=== PATIENT | male | born 1945 | race Caucasian/White ===

== ENCOUNTER 2025-06-13 13:42 | Inpatient (IN) | payer MEDICARE, SELFPAY ==
[2025-06-12] VITALS (9 sets, daily range): BP systolic 108–160; BP diastolic 77–86; BMI 27.3; BMI 27.8
--- NOTE | 2025-06-12 11:05 | ED.GENMED ---
History of Present Illness
General
Chief Complaint: Change in Mental Status
Source: ambulance crew and long term records
Exam Limitations: dementia
Time Seen by Provider: 06/12/25 11:03
History of Present Illness
History of Present Illness:
79 yo male w h/o GERD, Roberts's esophagus, Dementia, [place] for [place] yesterday, forehead contusion, more confused than usual. Not anticoagulated. Pt with expressive aphasia, can only state his name. He does follow all commands.
Past History
Past History
ED Past Medical History: GERD, Other (Roberts's esophagus) and Other (Expressive aphasia, dementia, alcohol abuse, CHF)
Social History
Tobacco: Non-smoker
Alcohol: Former
Personal:
Living: long term
Review of Systems
Review of Systems
Allergies reviewed?: Yes
All Other Systems: ROS reviewed and negative except as documented in HPI and ROS
: Reports incontinence
Musculoskeletal: Reports no symptoms
Phy Exam
Physical Exam
Physical Exam:
GENERAL: No acute distress. A&O x 1.
CONSTITUTIONAL: Afebrile.
EYES: clear, conjunctivae normal
ENMT: moist mucus membranes, Pharynx nl
RESPIRATORY: Regular respirations, nonlabored, lungs clear.
CARDIOVASCULAR: Regular rate and rhythm, no murmurs, no rubs.
GI: Soft, nontender, normal BS
MUSCULOSKELETAL: Moves with ease. Moves all extremities well. Well perfused.
SKIN: Warm, dry, pink
PSYCH: Calm mood and affect. Well kept, interactive.
NEUROLOGIC: Awake, alert and oriented x 1, expressive aphasia. Follows commands. No focal neurological deficits
Course
Orders/Labs/Results
Orders:
Orders
06/12/25 11:04
CT Head W/o Iv Contrast Urgent
Comment:
Reason For Exam: fall, L forehead contusion,more confused
06/12/25 11:12
Complete Blood Count/With Diff Urgent
Comprehensive Metabolic Panel Urgent
Magnesium Urgent
Comment: ADD ON
Phosphorus Urgent
Comment: ADD ON
TSH Reflex To Free T4 Urgent
Comment: ADD ON
Urinalysis Reflex To Culture Urgent
Date Specimen was Collected: 06/12/25
Time Specimen was Collected: 11:11
Urine Microscopic Reflex Cult Urgent
06/12/25 11:25
EKG [Electrocardiogram (*1)] Urgent
Reason for Study: Atrial Fibrillation
06/12/25 11:26
EKG- Treatment ONCE
06/12/25 12:38
CR Chest - 2 Views Urgent
Comment:
Reason For Exam: change in MS
06/12/25 12:52
NT-proBNP Urgent
Comment: ADD ON
Troponin I Urgent
06/12/25 14:29
Add On- LAB Urgent
Tests Added?: mag, phos
06/12/25 14:35
Admit/Transfer Patient As Directed
Co-Sign Provider:
Level of Care: Observation services
Assign to:: Telemetry
Physician / Group: Esperanza Rodriguez
Diagnosis: second degree heart block
Reason for Telemetry: Arrhythmia
Date to Stop Telemetry: 06/15/25
Time to Stop Telemetry: 11:00
PRN Pain Medication Management As Directed
May give lesser potent ordered pain med per pt: Yes
preference::
Protocol:: Medication orders for pain may be administered in a
manner that supports deferring to patient preference
when the pt is:
- Requesting an ordered lesser potent pain medication.
Least to most potent pain medications are defined
as: acetaminophen < NSAID < tramadol < opioids
(morphine, oxycodone, hydromorphone).
- Requesting a lesser dose of the same medication IF
ORDERED.
- Requesting a less intrusive route of administration
if both routes are prescribed by the provider (PO <
IV).
06/12/25 14:36
Code Status As Directed
Resuscitation Status: Do not resuscitate
Based on pt advanced directive or healthcare POA form: Yes
Physician note:: [facility] facesheet indicates DNR/DNI
DNR Bracelet Application ONCE
06/12/25 Dinner
Regular
At Your Request: Full Participation
Does patient need a safe tray?: No
06/12/25 15:36
Activity As Directed
Activity Level: As Tolerated
INT (Intravenous Needle Therapy) As Directed
Comment: maintain peripheral IV access
Intake/ Output As Directed
Frequency: Per unit guidelines
Vital Signs As Directed
Frequency: q4h
Weight As Directed
Frequency: Once
Comment: on admission
Pulse Ox/spot Check [RESP] Routine
Quantity: 1
Special Instructions: on admission and then every shift if on oxygen
DX Deep Vein Thrombosis Video Routine
06/12/25 18:00
Enoxaparin Sodium [Lovenox] 40 mg SC QPM
06/13/25 06:00
Basic Metabolic Panel IN AM
06/15/25 11:00
DC Protocol for Telemetry ONCE
Abnormal Lab Results
06/12/25
11:12
Absolute Lymphs (auto) 0.9 L 10^3/uL
(1.2-3.4)
Neutrophils % 78.4 H %
(42.2-75.2)
Lymphocytes % 14.8 L %
(20.5-51.1)
Chloride 108 H mmol/L
(98-107)
Glucose 119 H mg/dl
(70-99)
Magnesium 1.3 L mg/dl
(1.6-2.3)
Total Bilirubin 1.7 H mg/dl
(0.2-1.3)
Ur Occult Blood Reflex 1+ A
(Negative)
Urine Urobilinogen 2+ A
(Neg - 1+)
Urine Bacteria (Reflex) Few A
(Negative)
Urine Albumin (Reflex) 2+ A
(Neg - Trace)
06/12/25 11:12
06/12/25 11:12
Vital Signs
Initial and Last Documented VS:
Initial Vital Signs
Temp Pulse Resp Pulse Ox
97.5 F 66 18 94
06/12/25 10:56 06/12/25 10:56 06/12/25 10:56 06/12/25 10:56
Last Documented Vital Signs
Temp Pulse Resp BP Pulse Ox
97.4 F 113 20 125/86 95
06/12/25 15:57 06/12/25 15:57 06/12/25 15:57 06/12/25 15:57 06/12/25 15:57
Freezer Assistant consulted with Physician
Freezer Assistant consulted with physician?: Yes
Name of Physician Consulted: Donnie
MDM/Problems Addressed
Differential Diagnosis Includes:
UTI, dehydration, electrolyte imbalance, contusion forehead, brain bleed
MDM/Problems Addressed:
79 yo male w h/o GERD, Roberts's esophagus, Dementia, [place] here for [place] yesterday, forehead contusion, more confused than usual. Not anticoagulated. Pt with expressive aphasia, can only state his name. He does follow all commands.
Afebrile, NAD, Abdomen benign, VSS
12:30 PM:
Bedside monitor appears to be bradycardic with afib w 2nd degree heart block. This appears new.
CBC normal
CMP with no clinically significant abnormality
Straight cath UA: No clinically significant abnormality
EKG: A fib with slow ventricular response, secondary heart block Mobitz [address] Orozco
1:45 p.m.
CXR: NAD
BNP 1850
Troponin: WNL
Head CT: shows nothing acute
Plan: Admit to Hospitalist, Cardiology consult: New onset Afib with 2nd degree heart block.
*Pulse Oximetry
SaO2: 94
Oxygen Mode of Delivery: Room air
Patient hypoxic: no
*EKG
EKG Intrepretation Date: 06/12/25
Interpretation: abnormal
Heart Rate: 56
Rate: bradycardiac
Rhythm: a-fib
[place]: left axis deviation
QRS Pattern: normal QRS
Ischemia: no ischemia
*Critical Care Note
Total Time (30-74mins, 75-104mins- exclusive of procedures): Not Applicable
ED Attending Note
-
Portions of this chart may have been created with voice recognition software.� Occasional wrong word or��sound alike� substitutions may have occurred due to the inherent limitations of voice recognition software.
Discharge Plan
Departure
Patient Disposition: Admit
Date of Disposition: 06/12/25
Time of Disposition: 13:57
Admit to: Telemetry
Presentation/result/management discussed w/ accepting MD/DO: Hospitalist
Condition: Fair
Discharge Problem:
New onset a-fib, Second degree heart block
Interventions
Interventions:
*Risk Screen - Suicide Last Done: 06/12/25 11:08
*General Assessment Last Done: 06/12/25 11:08
*Neglect/Abuse Screening Last Done: 06/12/25 11:08
*ED- Fall Risk Assessment Last Done: 06/12/25 15:39
*ED COVID-19 Vaccine History Last Done: 06/12/25 11:12
*Nursing Disposition Last Done: 06/12/25 15:39
ED- Pulmonary Assessment Last Done: 06/12/25 11:17
ED-Psychological Assessment Last Done: 06/12/25 15:39
ED- Neurological Assessment Last Done: 06/12/25 11:17
ED- Cardiac Assessment Last Done: 06/12/25 11:17
ED Swallowing Screen Last Done: 06/12/25 11:13
Discharge Date and Time
Discharge Date/Time: 06/12/25 15:41
[2025-06-12 11:33] LABS: Hematocrit 44.7 % (39.0-52.0); Hemoglobin 15.1 g/dL (13.0-18.0); Mean Corp Hgb Conc. 33.8 g/dL (33.0-37.0); Mean Corpuscular Volume 87.5 fL (80.0-94.0); Nucleated Red Blood Cells % 0 % (-); Platelet Count 199 10^3/uL (130-400); Red Cell Dist. Width 12.9 % (11.5-14.5)
[2025-06-12 11:39] LABS: Urine Character Clear (Clear)
[2025-06-12 11:45] LABS: Urine Red Blood Cell 0-2 /HPF (0-2); Urine Squamous Cell 0-2 /LPF (Few)
[2025-06-12 11:57] LABS: ALT (SGPT) 11 U/L (0-50); AST (SGOT) 19 U/L (17-59); Albumin 3.9 g/dl (3.5-5.0); Alkaline Phosphatase 61 U/L (38-126); Blood Urea Nitrogen 13 mg/dl (9-20); Calcium 9.4 mg/dl (8.4-10.2); Carbon Dioxide 27 mmol/L (22-30); Chloride 108 mmol/L (98-107); Estimated Creatinine Clearance 90 ml/min; Glucose 119 mg/dl (70-99); Potassium 4.1 mmol/L (3.5-5.1); Sodium 141 mmol/L (135-145); Total Protein 6.3 g/dl (6.3-8.2); eGFR > 60.00
[2025-06-12 13:29] LABS: Troponin I < 0.012 ng/ml
[2025-06-12 15:06] LABS: Magnesium 1.3 mg/dl (1.6-2.3)
--- NOTE | 2025-06-12 15:26 | HPS.HSE ---
Family Physician
-
Family Physician: Delano ePrez MD
Chief Complaint
-
Fall
History of Present Illness
79-year-old male who is a resident at [facility] with known history of dementia and expressive aphasia, brought to the hospital after noticed by the nursing staff with some bruises on his left side of the face, patient does not follows commands
cannot agitated specially after he saw his , noticed on the EKG to be on second-degree type I heart block on the monitor he looks like in fact., Does not follows commands answer question he just basically moaning and try to reach out to his
and some of the words she states is clear but not related to the conversations.
Medical History
Past Medical History
Past Medical History: Reports Other
Additional Past Medical History:
Past medical history:
GERD
Advanced dementia
He is a [place] war
Roberts esophagus
Social history: Resident of the 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
Past Surgical History: Reports Other
Social History
Unable to obtain full social history at this time due to: Other
Family History
Family History: Other
Allergies / Home Medications
Allergies reflects when Allergies were last updated in [employer].
Home Medications with original date entered in [employer]
Allergy/Medication List:
Home Medications
aripiprazole 10 mg tablet 10 mg PO 06/12/25
dextromethorphan-guaifenesin 10 mg-200 mg/5 mL oral liquid 10 ml PO Q6HPRN PRN cough 06/12/25
finasteride 5 mg tablet 5 mg PO 06/12/25
fluticasone propionate 50 mcg/actuation nasal spray,suspension 1 spray intranasal 06/12/25
gabapentin 300 mg capsule 300 mg PO 06/12/25
mirtazapine 7.5 mg tablet 7.5 mg PO HS 06/12/25
pantoprazole 40 mg tablet,delayed release (Protonix) 40 mg PO 06/12/25
pravastatin 40 mg tablet 40 mg PO 06/12/25
tamsulosin 0.4 mg capsule (Flomax) 0.4 mg PO 06/12/25
therapeutic multivitamin 1 tab PO DAILY 06/12/25
thiamine HCl (vitamin B1) 100 mg tablet 100 mg PO DAILY 06/12/25
Review of Systems
-
Unable to obtain full review of systems at this time due to: Dementia
Physical Exam
Vital Signs
Vital Signs
Temp Pulse Resp BP Pulse Ox
97.5 F 67 16 118/82 95
06/12/25 10:56 06/12/25 14:45 06/12/25 14:45 06/12/25 14:00 06/12/25 14:15
exam is limited as patient does not follows command and answer question properly
Physical exam:
General: Awake, alert disoriented, does not follow commands and have an expressive aphasia and not in distress
HEENT: No active discharge, ecchymosis or bruising, moist lips, tongue and mucous membrane.
Eyes: No discharge or red conjunctiva, no nystagmus, pupils are reactive and equal
Respiratory: Normal AP contour and diameter, normal chest wall movement, normal respiratory effort, no respiratory distress,
Lungs: Good air entry bilaterally, no wheezing or rhonchi, no rales or crackles
Heart: S1, S2 regular, normal rate, no added sound.
Gastrointestinal: Positive bowel sounds, soft, nontender, no guarding or rigidity or organomegaly
Musculoskeletal: , Moves extremities freely,
Skin: Warm and dry, normal color.
Neurological: Does not follows command, advanced cognitive decline appreciated, move extremities freely
Psychiatric: Abnormal judgment and insight, confused
Physical Exam
General: Other
Laboratory Results
-
06/12/25 11:12
06/12/25 11:12
Laboratory Results
Total Bilirubin 1.7 mg/dl (0.2-1.3) H 06/12/25 11:12
AST 19 U/L (17-59) 06/12/25 11:12
ALT 11 U/L (0-50) 06/12/25 11:12
Alkaline Phosphatase 61 U/L (38-126) 06/12/25 11:12
Troponin I < 0.012 ng/ml 06/12/25 12:52
chest x-ray: No acute cardiopulmonary abnormality
CT brain:No acute intracranial abnormality noted.
Moderate atrophy
Nonacute appearing nasal bone fractures. Clinical correlation recommended..
EKG reviewed by me showed irregular, concerning for the A-fib with second-degree type I AV block, QTc 489
Data Reviewed
-
Diagnostic Radiology: Image Personally Visualized and interpreted and Discussed with Family
Lab Data: Labs Reviewed by me and Discussed with Family
Old Records: Reviewed
Impression/Plan
-
IMPRESSION:
79-year-old male with history of advanced dementia and expressive aphasia sent to the hospital for evaluation of the fall although workup kindly concerning for new onset A-fib and or second-degree type I heart block
Mechanical fall:
Patient ambulatory but trying to get out of the bed according to the this was is trying to do at the shelter
Fall precaution
1:1 but the nursing on the floor said they could not handle agitation without a one-to-one if continued then we may need some sedative and may use a soft restraint.
Advanced dementia: Continue omeprazole.
Mirtazapine
Dyslipidemia on statin
PPI continue Protonix
All discussed with the in detail at the bedside and expressed understanding all the question answered
CODE STATUS according to the is DNR/DNI
DVT prophylax
--- NOTE | 2025-06-12 15:41 | PHANOTE ---
med rec note- [facility], [facility] it [facility] but paperwork missing directions for medication, awaiting new paperwork
--- NOTE | 2025-06-12 15:45 | PTCARENOTE ---
06/12- Patient presents to floor calm and cooperative. Transferred and oriented without issue. AAOX2, forgetful, aphagia with slurred slowed speech. Unable to answer most Admissions questions. Multiple superficial abrasions and scabs seen over
L-side of body S/P fall yesterday. Bed Alarm applied. Suicide Observation D/Juan, as patient has no hx or current expression of SI, is currently cooperative and complying with Fall Precautions. Teley #[id number].
--- NOTE | 2025-06-12 15:50 | PTCARENOTE ---
06/12- Patient remains confused but pleasent/cooperative. Upon drinking some water, he began coughing, was not inspiring, face turned red. Sat patient up to 90degrees, percussed back, and he began coughing and breathing again. POX=98%, CE=619. HR
settled back to 89 after a few minutes of breathing. POX=99%. Did not pass Swallow Screen. Patient now NPO awaiting speech consult.
--- NOTE | 2025-06-12 16:55 | PTOTSP ---
Speech Therapy Evaluation:
Pt presents with signs concerning for oropharyngeal dysphagia, likely chronic related to dementia (pt with hx of expressive aphasia, ? hx of CVA). At bedside, significant coughing event with thin liquids. PO trials d/c due to safety concerns. CXR
without pneumonia, WBC WNL, pt afebrile, and on room air. Recommend temporary NPO with ongoing reassessment to determine candidacy oral diet.
Recommend:
1. Strict NPO
2. Meds non-oral
3. Oral care 3x/daily
4. FUEL CONVERSION TECHNICIAN to closely follow
[2025-06-12] MEDS: LOVENOX 40 MG SC (17:15)
--- NOTE | 2025-06-12 18:22 | CON.CAR ---
Consultation
Consultation Request
Date/Time Consultation Requested: 06/12/25
Date/Time Consultation Performed: 06/12/25
Requesting Provider: Dr. Rodriguez
Performing Provider: Dr. Bertrand
Reason for Consultation: Abnormal EKG
Medical History
-
Chief Complaint: Bruises noted on left side of face at [facility]
Allergies / Home Medications
Allergy/AdvReac Type Severity Reaction Status Date / Time
No Allergy Information Allergy Unverified 06/12/25 15:37
Available
�Medication �Instructions �Recorded �Confirmed �Type
aripiprazole 10 mg tablet 10 mg PO 06/12/25 History
dextromethorphan-guaifenesin 10 10 ml PO Q6HPRN PRN cough 06/12/25 06/12/25 History
mg-200 mg/5 mL oral liquid
finasteride 5 mg tablet 5 mg PO 06/12/25 History
fluticasone propionate 50 1 spray intranasal 06/12/25 History
mcg/actuation nasal
spray,suspension
gabapentin 300 mg capsule 300 mg PO 06/12/25 History
mirtazapine 7.5 mg tablet 7.5 mg PO HS 06/12/25 06/12/25 History
pantoprazole 40 mg tablet,delayed 40 mg PO 06/12/25 History
release (Protonix)
pravastatin 40 mg tablet 40 mg PO 06/12/25 History
tamsulosin 0.4 mg capsule (Flomax) 0.4 mg PO 06/12/25 06/12/25 History
therapeutic multivitamin 1 tab PO DAILY 06/12/25 06/12/25 History
thiamine HCl (vitamin B1) 100 mg 100 mg PO DAILY 06/12/25 06/12/25 History
tablet
Physical Exam
Vital Signs
Temp Pulse Resp BP Pulse Ox
97.4 F 113 20 125/86 95
06/12/25 15:57 06/12/25 15:57 06/12/25 15:57 06/12/25 15:57 06/12/25 15:57
Lab Results
06/12/25 11:12
06/12/25 11:12
Troponin I < 0.012 ng/ml 06/12/25 12:52
Sma-I-Mvkyyzzpkim Pept 1850 pg/ml 06/12/25 12:52
[2025-06-12] MEDS: HALDOL 2 MG IV ×2 (18:38→19:24)
--- NOTE | 2025-06-12 18:50 | PTCARENOTE ---
06/12- Patient has become aggressive and agitated. He attempts to pull out IV and Telemetry off. He attempts to get out of bed. When attempting to calm and redirect patient, he grabs and attempts to bite. Obtained order for PRN Haldol.
Administered as ordered, but patient continues to be physically aggressive. Notified House Provider again. Continue to monitor.
--- NOTE | 2025-06-12 19:02 | CON.CAR ---
Consultation
Consultation Request
Date/Time Consultation Requested: 06/12/25
Date/Time Consultation Performed: 06/12/25
Requesting Provider: Dr. Rodriguez
Performing Provider: Dr. Bertrand
Reason for Consultation: Abnormal EKG
Medical History
-
Chief Complaint: Worsening disorientation and unwitnessed fall
History of Present Illness:
I had the pleasure to meet your patient Adán Cisneros for evaluation of abnormal EKG and concern for heart block. This is the second consultation that I am completing as my completed consultation which just needed to be signed disappeared. After
contacting [facility], it was determined that my completed consult was canceled in error by Lisa Danielle and was not retrievable. This is my second consult.
.
Adán is an 79-year-old [place] with history of alcoholism and alcohol related medical complications. He is a poor historian. His medical history and presenting symptoms were reviewed with his , Adrianna over the phone. Adán is a
longstanding alcoholic who had epiglottitis approximately [address] [facility] requiring intubation and eventually tracheostomy. During his prolonged hospitalization he went through alcohol withdrawal including significant
DTs. She denies a history of seizures. Adrianna states that he was seen by cardiology during this hospitalization and has since follow-up with Dr. Salinas. Adán has a history of hypertension, hyperlipidemia but 'was doing well when last seen by "Colby"Brad earlier this year in September and was told to follow-up in 1 year. She denies being told that he has a cardiomyopathy and denies that he has a history of heart failure. He is not on Lasix. She denies that he has a history of atrial
fibrillation. She thinks he does have coronary artery disease but has no history of heart attack or stents. Additionally, he is followed by neurology at [facility],Dr. Montgomery diagnosed with Alzheimer's dementia as well as alcohol related brain
atrophy. She states that they have specifically told her that he has not had a stroke. Head imaging in she believes November found a brain bleed that they think was related to a prior fall; no intervention was required. He has previously seen GI at
[facility], Dr. Gonzalez with a history of fatty liver disease and Roberts's esophagus but denies a history of cirrhosis. He also has chronic aspiration/dysphagia with epiglottal malfunction. In his last year he had several hospitalizations at
[facility]. Apparently in January he had UTIs and falls. Following this hospitalization he was sent to [facility]hab however shortly after discharge fell again and suffered a nasal fracture which was conservatively managed by patient's choice.
Following this hospitalization he was transferred to [facility] where he has been a resident since February. Adrianna states that he has gait dysfunction and is very unbalanced with frequent falls. Apparently the night prior to admission he fell
getting up to go to the bathroom. The next morning he was disoriented, hallucinating and 'way off the wall 'along with bruising on his face prompting evaluation.
.
In the emergency room, blood pressure stable. Head CT shows no acute intracranial abnormality with moderate atrophy and nonacute nasal bone fractures. Chest x-ray showed no acute disease of the chest. WBC count 6, hemoglobin 15, platelets
199,000. Sodium 141, potassium 4.1. BUN and creatinine 13/0.7. LFTs within normal limits. Magnesium 1.3. Troponin less than 0.012. proBNP 1850. TSH 1.2. Twelve-lead EKG sinus bradycardia with Wenkebach and NSST. EKG prompted consultation
Past medical history as relayed by Adrianna: Hypertension, hyperlipidemia, Roberts's esophagus, alcoholism, history of alcohol withdrawal/DTs, history of epiglottitis requiring trach, chronic aspiration previously recommended with previously
recommended pur�ed diet, history of UTIs, alcohol related brain atrophy and Alzheimer's dementia, expressive aphasia, nasal fracture, frequent falls
Past Medical History
Past Medical History: Other (See HPI)
Past Surgical History: Other (Unable to obtain)
Social History
Tobacco: Former Smoker
Alcohol: Former (Former alcoholic sober since February)
Personal:
Living: Jail ([facility])
Employment: Disabled
Family History
Family History: Unable to Obtain
Allergies / Home Medications
Allergy/AdvReac Type Severity Reaction Status Date / Time
No Allergy Information Allergy Unverified 06/12/25 15:37
Available
�Medication �Instructions �Recorded �Confirmed �Type
aripiprazole 10 mg tablet 10 mg PO 06/12/25 History
dextromethorphan-guaifenesin 10 10 ml PO Q6HPRN PRN cough 06/12/25 06/12/25 History
mg-200 mg/5 mL oral liquid
finasteride 5 mg tablet 5 mg PO 06/12/25 History
fluticasone propionate 50 1 spray intranasal 06/12/25 History
mcg/actuation nasal
spray,suspension
gabapentin 300 mg capsule 300 mg PO 06/12/25 History
mirtazapine 7.5 mg tablet 7.5 mg PO HS 06/12/25 06/12/25 History
pantoprazole 40 mg tablet,delayed 40 mg PO 06/12/25 History
release (Protonix)
pravastatin 40 mg tablet 40 mg PO 06/12/25 History
tamsulosin 0.4 mg capsule (Flomax) 0.4 mg PO 06/12/25 06/12/25 History
therapeutic multivitamin 1 tab PO DAILY 06/12/25 06/12/25 History
thiamine HCl (vitamin B1) 100 mg 100 mg PO DAILY 06/12/25 06/12/25 History
tablet
Review of Systems
-
Unable to obtain full review of systems at this time due to: Dementia
History Source: Family
All other systems: Negative unless noted
Physical Exam
Vital Signs
Temp Pulse Resp BP Pulse Ox
97.4 F 113 20 125/86 95
06/12/25 15:57 06/12/25 15:57 06/12/25 15:57 06/12/25 15:57 06/12/25 15:57
Lab Results
06/12/25 11:12
06/12/25 11:12
Troponin I < 0.012 ng/ml 06/12/25 12:52
Bfz-W-Znqekbtdzdc Pept 1850 pg/ml 06/12/25 12:52
Physical Exam
General: Other (79-year-old gentleman with expressive aphasia, calm. Room air)
HEENT: Normocephalic, Anicteric and Moist Mucous Membranes
Respiratory: Other (Poor effort. Clear to auscultation)
Cardiac: S1/S2, Regular Rhythm and Other (Positive ectopy. No murmur)
GI: Soft, Non Tender, Non Distended and Normal Bowel Sounds
Musculoskeletal: No Edema
Neuro: Awake and Alert
Psych: Calm
Impression / Plan
-
Car Mover: Dr. Salinas
Impression:
Acute disorientation with underlying alcohol and Alzheimer's dementia
Frequent falls possibly with a fall prior to admission
Sinus bradycardia on EKG with second-degree Mobitz type I AV block/Wenckebach
Hypertension
Hyperlipidemia
History of alcoholism
History of Roberts's esophagus
Dysphagia with aspiration
Spinal stenosis
Hypomagnesium
Plan:
EKG on admission with sinus bradycardia with second-degree Mobitz type I Wenckebach phenomena
-Usually asymptomatic and does not require intervention
-For now we will avoid use of AV arianne blocking agent
-Monitor on telemetry to exclude higher degree AV block or significant bradycardia arrhythmia
-Lab work reviewed with normal hemoglobin, renal function, sodium/potassium, TSH and negative troponin.
-Replete magnesium for mag greater than 2
-proBNP elevated however patient does not examine volume overloaded or in heart failure.
-Records from patient's outpatient production statistical clerk will be requested Friday
Acute worsening of mental status and frequent falls
-Management per primary
Dysphagia/history of aspiration�speech and swallowing recommend n.p.o. status at this time pending further evaluation.
Plan discussed with over the phone
Time spent euse-ya-unhi with patient, on the phone with his , reviewing studies/testing and documenting consult twice, 75-minute
Data Reviewed
-
EKG: Tracing Personally Visualized and interpreted
Radiology: Report Reviewed by me
Medical Tests (Nuc Med, Echo etc): Discussed with Family
Labs: Labs Reviewed by me
Old Records: Reviewed
--- NOTE | 2025-06-12 20:49 | PTCARENOTE ---
Patient kicking, hitting and biting staff from start of shift. Order for b/l soft limb wrist restraints and 4 rails ordered. when attempting care with patient , patient kicked RN in the stomach and continued to attempt to kick staff. Patient bladder
scanned with result of 260 mls/ COMBINATION SAW OPERATOR notified. 4 point soft limb restraints ordered and boat cleaning supervisor made aware. One to one observation present in room per protocol. Patient remains agitated and continuously moving around in bed attempting to bite,
kick and scratch staff with all care.
[2025-06-12] MEDS: REMERON 7.5 MG PO (21:24)
[2025-06-13 03:40] VITALS: BP 142/78
[2025-06-13 05:37] VITALS: BMI 27.4
--- NOTE | 2025-06-13 05:53 | W.PN.UPDATE ---
Update Note
Progress Note Update
Patient noted earlier this shift to be quite violent...kicking and punching staff. Cristy BOOKER x2 and 1:1 added.
[2025-06-13 07:25] VITALS: BP 159/77
[2025-06-13 07:54] LABS: Blood Urea Nitrogen 10 mg/dl (9-20); Calcium 9.3 mg/dl (8.4-10.2); Carbon Dioxide 28 mmol/L (22-30); Chloride 108 mmol/L (98-107); Estimated Creatinine Clearance 87 ml/min; Glucose 78 mg/dl (70-99); Potassium 3.7 mmol/L (3.5-5.1); Sodium 141 mmol/L (135-145); eGFR > 60.00
--- NOTE | 2025-06-13 09:57 | CM ---
Addendum entered by Eryn Rob 06/13/25 16:23:
emailed to patient , form and discussed OBS/ORR status. Patient currently ma pending at snf.
Original Note:
Patient is fdc care at [facility]. CM left spoke briefly with liaison at [facility] and await call back. Patient is LTC and on a bed hold. Patient does have behaviors per liaison but not usually in restraints. Patient is currently OBS
status, CM will call to patient family to update. CM will continue to follow for discharge planning needs.
Plan:return to SNF when medically appropriate, watch for pt/ot assessment when appropriate.
[2025-06-13 11:05] VITALS: BP 150/79
[2025-06-13] MEDS: PROTONIX PO (11:41)
[2025-06-13] MEDS: PROSCAR 5 MG PO (14:19)
[2025-06-13] MEDS: ABILIFY 10 MG PO (14:19)
[2025-06-13 15:20] VITALS: BP 154/86
--- NOTE | 2025-06-13 16:00 | PTCARENOTE ---
Patient has been calm and acted nonviolently as restraints have been progressively removed. Behavior has improved and no longer merits the use of soft restraints, they have been removed at 16:00. Patient lying in bed, eating . Call moss within
reach, bed in the lowest position with 3 siderails up
--- NOTE | 2025-06-13 16:20 | W.PN.HOSP.TC ---
Today's Communication/Plan
-
Resume preadmission diet with aspiration precautions accepting aspiration risk.
Resume Abilify and Remeron.
Telemetry monitoring
Assessment / Plan
Assessment / Plan
Impression:
Presented from nursing facility with altered mental status baseline, reported acute disorientation.
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
Ambulatory dysfunction with frequent falls.
Sinus bradycardia with second-degree Mobitz type I AV block/Wenckebach
Other conditions:
Essential hypertension
Dyslipidemia
History of severe alcohol use disorder
Roberts's esophagus
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
Spinal stenosis
Hypogonadism
Plan:
Mental status at the baseline
Patient does have advanced dementia with behavioral disturbances.
Neurologic exam with no acute abnormalities
CT scan of the head with no acute abnormalities
Resume Abilify and Remeron
Aspiration risk/aspiration syndrome
Speech and swallow evaluation noted with evidence of severe aspiration.
Discussed with patient's
Patient is on modified diet at nursing facility which is minced food with thickened liquids with understanding and accepting aspiration risk. They would not consider any alternative means of feeding including feeding tubes
Bradycardia with second-degree type I/Wenckebach
Monitor on telemetry
Cardiology input reviewed with no indication for intervention at this point.
Anticipated Discharge: 24 - 48 hours
Subjective/Interval History
-
Date of Service: June 13, 2025
Objective Data
-
Labs:
Laboratory Results
06/13/25
06:37
Sodium 141
Potassium 3.7
Chloride 108 H
Carbon Dioxide 28
BUN 10
Creatinine 0.7
Glucose 78
Calcium 9.3
Vital Signs:
Vital Signs
Temp Pulse Resp BP Pulse Ox
97.3 F 68 18 154/86 96
06/13/25 15:20 06/13/25 15:20 06/13/25 15:20 06/13/25 15:20 06/13/25 15:20
I&O
06/12/25 06/13/25 06/14/25
06:59 06:59 06:59
Intake Total 0 / 0
Output Total 500 / 500
Balance -500 / -500
Physical Exam
-
General: Well Developed and No Apparent Distress
HEENT: Normocephalic, Atraumatic and Moist Mucous Membranes
Respiratory: Clear to Auscultation
Cardiac: Regular Rhythm and S1/S2; Negative Murmur, Rub or Gallop
GI: Soft, Nontender, Nondistended and Normal Bowel Sounds; Negative Organomegaly
Rectal: Deferred by Provider
Musculoskeletal: No Clubbing, No Cyanosis and No Edema
Skin: Negative Rash
Neuro: Awake, Alert, Oriented and Other (Aphasic at baseline. Following commands)
[2025-06-13] MEDS: HALDOL 2 MG IV (17:32)
--- NOTE | 2025-06-13 18:04 | W.PN.CARDCBS ---
Today's Communication / Plan
-
Will sign off, recall if needed
Impression / Plan
-
Petroleum Inspector: Dr. Salinas
Impression:
Acute disorientation with underlying alcohol and Alzheimer's dementia
Frequent falls possibly with a fall prior to admission
Sinus bradycardia on EKG with second-degree Mobitz type I AV block/Wenckebach
Hypertension
Hyperlipidemia
History of alcoholism
History of Roberts's esophagus
Dysphagia with aspiration
Spinal stenosis
Hypomagnesium
Plan:
Abnormal EKG
- EKG on admission with sinus bradycardia with second-degree Mobitz type I Wenckebach phenomena
-Telemetry sinus bradycardia/sinus rhythm and sinus tachycardia with PVCs/PACs. No atrial fibrillation
- No high degree AV block or significant bradycardia
-Lab work reviewed with normal hemoglobin, renal function, sodium/potassium, TSH and negative troponin.
-Replete magnesium for mag greater than 2
-proBNP elevated however patient does not examine volume overloaded or in heart failure.
- Records received from [facility], Dr. Salinas. Consult note October 18, 2024 reports a history of hypertension and cardiomyopathy with PVCs with an echocardiogram in February 2022 with a EF 40-45%. Patient had been on carvedilol 25 mg twice daily and
pravastatin 40 mg daily as well as losartan 50 mg twice daily per office record.
- Given advanced dementia would not resume pravastatin. It is unclear if he was on carvedilol at time of admission but would not resume at this time. Monitor blood pressures but will keep off losartan at this time
- Will defer to primary but from cardiac standpoint could remove from telemetry
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
Chronic dysphagia and aspiration
-Management per primary
Will sign off, recall if needed
Time spent inwi-pm-lehc with patient, on the phone with his , reviewing studies/testing and documenting consult twice, 75-minute
Progress Note - Petroleum Inspector
Subjective
Date of Service: June 13, 2025
Patient currently in 4-point restraint with nursing at bedside. He is more calm than last night.
Objective
Labs:
06/12/25 11:12
06/13/25 06:37
Labs
Hgb 15.1 g/dL (13.0-18.0) 06/12/25 11:12
Hct 44.7 % (39.0-52.0) 06/12/25 11:12
Plt Count 199 10^3/uL (130-400) 06/12/25 11:12
Sodium 141 mmol/L (135-145) 06/13/25 06:37
Potassium 3.7 mmol/L (3.5-5.1) 06/13/25 06:37
BUN 10 mg/dl (9-20) 06/13/25 06:37
Creatinine 0.7 mg/dL (0.7-1.3) 06/13/25 06:37
Glucose 78 mg/dl (70-99) 06/13/25 06:37
Troponins
06/12/25
12:52
Troponin I < 0.012
Vital Signs and I&O:
Vital Signs
Temp Pulse Resp BP Pulse Ox
97.3 F 68 18 154/86 96
06/13/25 15:20 06/13/25 15:20 06/13/25 15:20 06/13/25 15:20 06/13/25 15:20
Vital Signs
Temp Pulse Resp BP Pulse Ox
97.3 F 68 18 154/86 96
06/13/25 15:20 06/13/25 15:20 06/13/25 15:20 06/13/25 15:20 06/13/25 15:20
Intake & Output
06/11/25 06/12/25 06/13/25 06/14/25
06:59 06:59 06:59 06:59
Intake Total 0 / 0
Output Total 500 / 500
Balance -500 / -500
Physical Exam
Physical Exam
General: Awake and alert. Expressive aphasia and not following commands. Soft limb restraints
Heart: Regular, Negative S3 positive S1/S2, Negative S4, No murmur
Lungs: Poor effort. Clear
Abd: Positive bowel sound
Ext: No
[2025-06-13] MEDS: LOVENOX 40 MG SC (18:15)
[2025-06-13] MEDS: PRAVACHOL 40 MG PO (18:16)
[2025-06-13 19:00] VITALS: BP 122/82
[2025-06-13] MEDS: NEURONTIN 300 MG PO (21:21)
[2025-06-13] MEDS: REMERON 7.5 MG PO (21:22)
[2025-06-13 23:00] VITALS: BP 122/69
[2025-06-14 03:00] VITALS: BP 117/79
[2025-06-14 03:16] VITALS: BMI 27.3
--- NOTE | 2025-06-14 06:36 | PTCARENOTE ---
Pt slept through most of night, when RN woke pt to be changed or for meds pt cooperative. No aggression/ agitation during HS.
[2025-06-14 07:25] VITALS: BP 130/67
[2025-06-14] MEDS: PROTONIX 40 MG PO (08:04)
[2025-06-14] MEDS: PROSCAR 5 MG PO (08:04)
[2025-06-14] MEDS: ABILIFY 10 MG PO (08:04)
[2025-06-14 11:25] VITALS: BP 120/70
--- NOTE | 2025-06-14 13:45 | W.DS.TRANS ---
DC Summary - Truck Mechanic Apprentice
-
Discharge Instructions:
Sleep Apnea Risk Intermediate
Discharge Diagnosis/Procedures Metabolic Encephalopathy
Diet Other diet
Additional Diets Minced & moist with nectar thick liquids
Instructions:
Stand-Alone Forms:
Changes to Home Medications: Yes
Discharge Medications:
DC Medications w/original date entered in [facility]
aripiprazole 10 mg tablet 10 mg PO Mental Health/Anxiety 06/12/25
finasteride 5 mg tablet 5 mg PO Urinary Issue 06/12/25
fluticasone propionate 50 mcg/actuation nasal spray,suspension 1 spray intranasal Allergies 06/12/25
gabapentin 300 mg capsule 300 mg PO Neurological Condition 06/12/25
mirtazapine 7.5 mg tablet 7.5 mg PO HS Mental Health/Anxiety 06/12/25
pantoprazole 40 mg tablet,delayed release (Protonix) 40 mg PO Gastrointestinal Issue 06/12/25
pravastatin 40 mg tablet 40 mg PO High Cholesterol 06/12/25
tamsulosin 0.4 mg capsule (Flomax) 0.4 mg PO Urinary Issue 06/12/25
therapeutic multivitamin 1 tab PO DAILY Supplement 06/12/25
thiamine HCl (vitamin B1) 100 mg tablet 100 mg PO DAILY Supplement 06/12/25
Home Medication Changes
Dextromethorphan stopped
Pending Results: No
--- NOTE | 2025-06-14 13:52 | CM ---
Patient was admitted under observation, ORR letter completed and placed on chart, patient to return to [facility] today by ambulance.
[facility]
Report [phone]
fax [phone]
[2025-06-14 14:44] VITALS: BP 167/63
--- NOTE | 2025-06-14 16:51 | PTCARENOTE ---
report given to nurse Mckee at [facility]
[2025-06-14] MEDS: PRAVACHOL 40 MG PO (18:16)
[2025-06-14] MEDS: LOVENOX 40 MG SC (18:16)
[2025-06-14 19:09] VITALS: BP 116/85
== END 2025-06-14 19:20 | DRG 92 ==
LOC: 4 WEST ACU 13:42
PROVIDERS: Nurse Practitioner Family; Registered Nurse; ADMITTING PHYSICIAN Internal Medicine; ATTENDING PHYSICIAN Internal Medicine; CONSULT PHYSICIAN Internal Medicine Cardiovascular Disease; EMERGENCY PHYSICIAN Emergency Medicine; FAMILY PHYSICIAN Family Medicine
DX: G92.8 Other toxic encephalopathy (principal); I42.9 Cardiomyopathy, unspecified; R47.01 Aphasia; F02.80 Dementia in other diseases classified elsewhere, unspecified severity, without behavioral disturbance, psychotic disturbance, mood disturbance, and anxiety; G30.9 Alzheimer's disease, unspecified; G31.9 Degenerative disease of nervous system, unspecified; R29.6 Repeated falls; I44.1 Atrioventricular block, second degree; I50.9 Heart failure, unspecified; I11.0 Hypertensive heart disease with heart failure; K22.70 Barrett's esophagus without dysplasia; M48.00 Spinal stenosis, site unspecified; E29.1 Testicular hypofunction; K21.9 Gastro-esophageal reflux disease without esophagitis; W19.XXXA Unspecified fall, initial encounter; Z87.440 Personal history of urinary (tract) infections; Z87.891 Personal history of nicotine dependence; F10.21 Alcohol dependence, in remission; T50.905A Adverse effect of unspecified drugs, medicaments and biological substances, initial encounter
CPT/HCPCS: 70450; 71046; 80048; 80053; 81003; 81015; 83735; 83880; 84100; 84443; 84484; 85025; 87070; 92526; 92610; 93005; 99285

== ENCOUNTER 2025-06-15 12:45 | Emergency (ER) | payer MEDICARE, SELFPAY ==
[2025-06-15 12:47] VITALS: BP 146/80
[2025-06-15 13:12] LABS: Hematocrit 46.9 % (39.0-52.0); Hemoglobin 16.0 g/dL (13.0-18.0); Mean Corp Hgb Conc. 34.1 g/dL (33.0-37.0); Mean Corpuscular Volume 86.7 fL (80.0-94.0); Nucleated Red Blood Cells % 0 % (-); Platelet Count 231 10^3/uL (130-400); Red Cell Dist. Width 13.0 % (11.5-14.5)
[2025-06-15 13:22] LABS: APTT 27.8 Sec (23.4-35.0); INR 0.98; PT 13.5 Sec (11.4-14.6)
[2025-06-15 13:26] LABS: Urine Character Clear (Clear)
[2025-06-15 13:27] LABS: ALT (SGPT) 12 U/L (0-50); AST (SGOT) 18 U/L (17-59); Albumin 4.1 g/dl (3.5-5.0); Alkaline Phosphatase 71 U/L (38-126); Blood Urea Nitrogen 18 mg/dl (9-20); Calcium 10.0 mg/dl (8.4-10.2); Carbon Dioxide 28 mmol/L (22-30); Chloride 108 mmol/L (98-107); Glucose 109 mg/dl (70-99); Potassium 3.5 mmol/L (3.5-5.1); Sodium 143 mmol/L (135-145); Total Protein 6.6 g/dl (6.3-8.2); eGFR > 60.00
--- NOTE | 2025-06-15 13:28 | ED.GENMED ---
History of Present Illness
General
Chief Complaint: Change in Mental Status
Source: spouse ()
Time Seen by Provider: 06/15/25 13:17
History of Present Illness
History of Present Illness:
79-year-old male brought to the emergency room for evaluation of a fall. He seems more confused than baseline. Patient does have significant dementia and resides at [facility]. felt like the patient was staring more today which is not
normal for him. He was recently hospitalized here at [facility] for confusion and A-fib with rapid ventricular response. Patient unable to provide any history as he is nonverbal. History provided through his , Adrianna
Past History
Past History
ED Past Medical History: GERD, Other (Roberts's esophagus) and Other (Expressive aphasia, dementia, alcohol abuse, CHF)
Social History
Tobacco: Non-smoker
Alcohol: Former
Personal:
Living: penitentiary
Phy Exam
Physical Exam
Physical Exam:
General: Awake, Alert, Oriented X3. No acute distress. Nonverbal
Vitals: unremarkable
Head: Superficial laceration right forehead closed with Steri-Strips at the facility
Eyes: Pupils equal, EOMI
Throat: Airway intact, no exudates
Neck: Trachea midline
Lungs: Clear and equal b/l
Heart: Regular rate, no murmurs
Abd: Soft, Nontender, No pulsatile mass
Neuro: Nonfocal
Skin: Warm, dry, no rash
Extremities: pulses equal b/l, no edema
Course
Orders/Labs/Results
Orders:
Orders
06/15/25 13:00
Electrocardiogram (*1) Urgent
Reason for Study: Other
Other Reason for Exam: Possible Stroke
Head wo Contrast CT [CT Head W/o Iv Contrast] Urgent
Comment:
Reason For Exam: increased confusion/fall
Cardiac Monitoring- Treatment ONCE
EKG- Treatment ONCE
IV Insert/Care/Rem.- Treatment PRN
Vital Signs As Directed
Frequency: Other
Weight As Directed
Frequency: Once
Comment: ZERO STRETCHER SCALE FOR ACCURATE WEIGHT
06/15/25 13:02
Complete Blood Count/With Diff Urgent
Comprehensive Metabolic Panel Urgent
PTT Urgent
Prothrombin Time Urgent
Troponin I Urgent
Urinalysis Reflex To Culture Urgent
Date Specimen was Collected: 06/15/25
Time Specimen was Collected: 13:00
Urine Microscopic Reflex Cult Urgent
06/15/25 13:35
0.9% Sodium Chloride 1000 ml [Nss] 1,000 ml IV BOLUS
06/15/25 Dinner
NPO
Reason for opting out of Account Service Representative order writing: Provider Decision
Allow oral meds: No
Allow clear liquids: No
Abnormal Lab Results
06/15/25
13:02
Neutrophils % 77.7 H %
(42.2-75.2)
Lymphocytes % 14.9 L %
(20.5-51.1)
Chloride 108 H mmol/L
(98-107)
Glucose 109 H mg/dl
(70-99)
Total Bilirubin 2.5 H mg/dl
(0.2-1.3)
Urine Ketones 3+ A
(Negative)
Ur Occult Blood Reflex 1+ A
(Negative)
Urine Bilirubin 1+ A
(Negative)
Urine Urobilinogen 2+ A
(Neg - 1+)
Urine RBC 16-20 A /HPF
(0-2)
Urine Bacteria (Reflex) Few A
(Negative)
Urine Albumin (Reflex) 2+ A
(Neg - Trace)
06/15/25 13:02
06/15/25 13:02
Vital Signs
Initial and Last Documented VS:
Initial Vital Signs
Temp Pulse Resp BP Pulse Ox
98.5 F 92 18 146/80 92
06/15/25 12:47 06/15/25 12:47 06/15/25 12:47 06/15/25 12:47 06/15/25 12:47
Last Documented Vital Signs
Temp Pulse Resp BP Pulse Ox
98.5 F 89 17 146/80 93
06/15/25 12:47 06/15/25 13:15 06/15/25 13:15 06/15/25 12:47 06/15/25 13:29
*Pulse Oximetry
SaO2: 93
Oxygen Mode of Delivery: Room air
ED Attending Note
-
Portions of this chart may have been created with voice recognition software.� Occasional wrong word or��sound alike� substitutions may have occurred due to the inherent limitations of voice recognition software.
Discharge Plan
Departure
Patient Disposition: Intermediate/SNF
Date of Disposition: 06/15/25
Time of Disposition: 16:28
Condition: Fair
Discharge Problem:
Head injury, Dementia
Instructions: Head injury in adults, Dementia (DC)
Prescriptions:
No Action
pravastatin 40 mg Tablet
40 mg PO HS
thiamine HCl (vitamin B1) 100 mg Tablet
100 mg PO DAILY
therapeutic multivitamin Tablet
1 tab PO DAILY
tamsulosin [Flomax] 0.4 mg Capsule
0.4 mg PO QPM
gabapentin 300 mg Capsule
300 mg PO TID
fluticasone propionate 50 mcg/actuation [place],Suspension
2 spray INTRANASAL BID
finasteride 5 mg Tablet
5 mg PO DAILY
aripiprazole 10 mg Tablet
10 mg PO HS
quetiapine [Seroquel] 25 mg Tablet
75 mg PO HS
acetaminophen [Tylenol] 325 mg Tablet
650 mg PO Q6HPRN PRN (Reason: mild pain)
melatonin 3 mg Tablet
3 mg PO HSPRN PRN (Reason: sleep)
guaifenesin 100 mg/5 mL Liquid
100 mg PO Q6HPRN PRN (Reason: cough)
magnesium hydroxide [Milk of Magnesia] 400 mg/5 mL Suspension
2,400 mg PO HSPRN PRN (Reason: if no bm by 3rd day)
folic acid 1 mg Tablet
1 mg PO DAILY
[place] Nasal 0.65 % Aerosol,[place]
1 spray INTRANASAL QID
mirtazapine 7.5 mg Tablet
7.5 mg PO HS
pantoprazole [Protonix] [address] For Susp In Packet
40 mg PO DAILY
Referrals:
Delano Perez MD [Family Provider, Family Practice]
Interventions
Interventions:
*Risk Screen - Suicide Last Done: 06/15/25 12:47
*General Assessment Last Done: 06/15/25 12:47
*Neglect/Abuse Screening Last Done: 06/15/25 12:47
*ED COVID-19 Vaccine History Last Done: 06/15/25 12:47
ED- Pulmonary Assessment Last Done: 06/15/25 13:24
ED- Neurological Assessment Last Done: 06/15/25 13:24
ED- Cardiac Assessment Last Done: 06/15/25 13:24
ED Swallowing Screen Last Done: 06/15/25 13:24
Discharge Date and Time
Print Language: TURKMEN
[2025-06-15 13:34] LABS: Urine Urothelial Cell 0-2 /LPF (FEW); Urine White Cell 0-2 /HPF (0-5)
[2025-06-15 13:35] LABS: Urine Red Blood Cell 16-20 /HPF (0-2)
[2025-06-15] MEDS: NSS 1000 IV (13:45)
[2025-06-15 14:00] VITALS: BP 115/73
[2025-06-15 14:01] LABS: Troponin I 0.021 ng/ml
[2025-06-15 15:39] VITALS: BP 138/75
[2025-06-15 16:00] VITALS: BP 134/60
[2025-06-15 17:00] VITALS: BP 129/70
[2025-06-15 18:00] VITALS: BP 141/108
== END 2025-06-15 19:10 ==
LOC: EMR 12:45
PROVIDERS: EMERGENCY PHYSICIAN Emergency Medicine; FAMILY PHYSICIAN Family Medicine
DX: S09.90XA Unspecified injury of head, initial encounter (principal); F03.90 Unspecified dementia, unspecified severity, without behavioral disturbance, psychotic disturbance, mood disturbance, and anxiety; I48.91 Unspecified atrial fibrillation; I50.9 Heart failure, unspecified; K21.9 Gastro-esophageal reflux disease without esophagitis; K22.70 Barrett's esophagus without dysplasia; X58.XXXA Exposure to other specified factors, initial encounter
CPT/HCPCS: 99284; 96360; 70450; 80053; 81003; 81015; 84484; 85025; 85610; 85730; 93005